=== PATIENT | male | born 1975 | race Caucasian/White ===

== ENCOUNTER 2018-09-03 21:11 | Emergency (ER) | payer OTHER ==
--- NOTE | 2018-09-03 21:16 | PDOC ---
Rapid Medical Evaluation Time Seen by Provider: 09/03/18 21:14 Medical Evaluation: 09/03/18 21:15 I have performed a brief in-person evaluation of this patient. The patient presents with a chief complaint of:B Shoulder "spasm" Pertinent physical exam findings:NAD I have ordered the following:Nothing The patient will proceed to the ED for further evaluation.
[2018-09-03 21:22] VITALS: BP 136/90; PULSE 85; TEMP 98; BMI 38.6
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
[2018-09-03] MEDS ORDERED: IBUPROFEN 400 MG TABLET (FP) PO ONE (23:28)
== END 2018-09-04 00:38 | disposition home or self-care (01) ==
LOC: JERFT 21:11 → JER 21:11
DX: S29.012A Strain of muscle and tendon of back wall of thorax, initial encounter (principal); V43.62XA Car passenger injured in collision with other type car in traffic accident, initial encounter; Y92.414 Local residential or business street as the place of occurrence of the external cause; Y93.89 Activity, other specified; Y99.8 Other external cause status
CPT/HCPCS: 99282-25